=== PATIENT | female | born 1940 | race Caucasian/White ===

== ENCOUNTER 2017-11-19 13:08 | Emergency (ER) | payer MEDICARE, OTHER ==
[2017-09-26 08:24] VITALS: BMI 23.8
[~2017-11-19 13:08] MED LIST: ALBU8.5H IH; ALPR-1 PO; ALPR-445 PO; ALPR-459 PO; ASPI-1441 PO; AUG500 PO; AZIT-1 PO; BLOO-1503 MC; BLOO-1777 MC; CELE-1 PO; CETI-169 PO; CIP500 PO; CITA-139 PO; CITA-155 PO; CLIN300C99 PO; CLOB15CR22 TP; CLOB15OI16 TP; CLOP75TA PO; DIA5 PO; DIAZ-308 PO; DIAZ-311 PO; DIP5L PO; DOCU240C84 PO; DOXY-179 PO; DOXY-228 PO; ENOX100D5 SC; EZET1TAB53 PO; EZET1TAB64 PO; FENO160T PO; FLU45SYR17 IM; FLU45SYR25 IM ONLY; FLUT16SP19 NS; FLUT1DIS27 IH; GABA-547 PO; GLUC500C29 PO; HYDR-318 PO; HYDR-385 PO; HYDR-389 PO; HYDR-4305 PO; HYDR1TAB PO; LEV500 PO; LEVO50TA86 PO; LEVO75TA73 PO; LID5T TP; LOS50 PO; LOSA50TA67 PO; LOSA50TA72 PO; MECL-81 PO; MECL25TA9 PO; METF-408 PO; METO25TA93 PO; MULT-820 PO; MULT1TAB64 PO; NITR-105 PO; OMEP40CA48 PO; OXYC-823 PO; OXYGENHOME INH; PANT40TA65 PO; PER PO; PNEU0.5D3 IM; PRE20 PO; PRED20TA6 PO; QUET25TA30 PO; ROSU20TA23 PO; SAL50R INH; SERT-181 PO; SERT-184 PO; SIMV-49 PO; SIMV10TA98 PO; SITA100T PO; SITA100T9 PO; SITA50TA7 PO; SUCR1TAB51 PO; TRAM-420; WARF-1 PO; WARF1TAB63 PO; [UNRECOGNIZED DRUG - CODE] MC; [UNRECOGNIZED DRUG - CODE] PO
[2017-11-19 14:44] LABS: PLATELET COUNT, AUTOMATED 191 K/uL (150-450)
[2017-11-19] MEDS ORDERED: OLANZapine ZYDIS ODT 5MG TABDP PO ONE ×2 (14:50→15:55)
--- NOTE | 2017-11-19 14:51 | EKG ---
FACILITY: [facility] - [place] PATIENT NAME: THEODORE GARIBAY : [id number] MR: [id number] V: [id number] EXAM DATE: ORDERING PHYSICIAN: MARICEL DOSS TECHNOLOGIST: Test Reason : Blood Pressure : / mmHG Vent. Rate : 074 BPM Atrial Rate : 074 BPM P-R Int : 122 ms QRS Dur : 078 ms QT Int : 314 ms P-R-T Axes : 077 080 083 degrees QTc Int : 348 ms Sinus rhythm Probable left atrial enlargement Artifact in several leads - repeat if needed Abnormal ECG Confirmed by YULISA CANCHOLA ([id number]) on 11/20/2017 6:42:20 AM Referred By: Confirmed By:YULISA CANCHOLA
[2017-11-19 14:59] VITALS: BP 148/73
--- NOTE | 2017-11-19 15:12 | BHS - Psychiatric Evaluation ---
ER - Title 25 MHE Evaluation Title 25 Evaluation Patient Detained By: Physician Referral Source: Dr. Santos Date Patient Detained: Nov 19, 2017 Time Patient Detained: 15:07 Date Shelter Expires: Nov 22, 2017 Time Shelter Expires: 15:07 Legal Status: Police Hold: No Legal Status: Residence: [facility] Resident Assessment Data Provided By: Patient, Other Provider, Family Member(s) HPI/ROS: suicidal threats, homicidal threats Admit due to SI or Attempt: No Suicide Plan: No Plan Alcohol or Drugs Involved: No Is Patient Info Reliable: No Is Collateral Info Reliable: Yes Mental Status Exam General Appearance: Psychomotor Agitation Mood: Dysthmic/Depressed Affect: Anxious, Agitated Thought Process: Loose Associations, Flight of Ideas Thought Content: Suicidal Ideation, Homicidal Ideation, Delusions, Visual Hallucinations Sensorium: Other Cognition: Alert & Oriented-Place Current Risk & History Current Dangerous Risk Assessm: Current Suicide Ideation Past Dangerous Risk Assessm: Homicidal Ideation Previous Suicide Attempt: No Previous Attempt Previous Psychiatric Illness: No Previous Psychiatric Treatment: No Risk Assessment & Disposition Evaluated Risk Assessment: Positive risk for suicide or harm to others Meets Mental Illness Req.: Yes Meets Dangerousness Req.: Yes Emergency Shelter to be: Upheld Date of Decision: Nov 19, 2017 Time of Decision: 15:10 Patient is Medically Stable at: Yes Disposition: LENA GOLDSTEIN MD Nov 19, 2017 15:12
--- NOTE | 2017-11-19 15:14 | ER Report ---
History and Physical Time Seen By MD: 13:15 Hx. of Stated Complaint: Patient reports she is her and "may or may not have" stated she was suicidal. is here and states they are not getting a divorce and she is confused. HPI/ROS CHIEF COMPLAINT: Dementia/delirium/SI/HI HISTORY OF PRESENT ILLNESS: Patient is a 77-year-old female accompanied by her , who presents the ED with a complaint of worsening dementia and delirium and possible suicidal and homicidal ideations. She states that she has had some suicidal ideation the past but is denying this now. She is uncertain who the person with her is today. She said initially that this might be her stepbrother. The person accompanying her is actually her . She appears to think that her son who lives in [place] is her . Her states that he has had a cold police multiple times this week because she has been threatening to kill herself and him. She apparently does not believe that he is her and he states that he she has been calling her multiple different things. He states that this all started when she had back surgery about 6-8 weeks ago and she had a case of extended delirium or dementia sounds. REVIEW OF SYSTEMS: Constitutional: No fever, no chills. Eyes: No discharge. ENT: No sore throat. Cardiovascular: No chest pain, no palpitations. Respiratory: No cough, no shortness of breath. Gastrointestinal: No abdominal pain, no vomiting. Genitourinary: No hematuria. Musculoskeletal: No back pain. Skin: No rashes. Neurological: No headache. Allergies: Coded Allergies: Cephalosporins (Unverified Allergy, Mild, HIVES, 10/28/17) sulfamethoxazole (Verified Allergy, Mild, RASH, 10/28/17) trimethoprim (Verified Allergy, Mild, RASH, 10/28/17) amoxicillin (Verified Allergy, Unknown, GI DISTRESS, 10/28/17) bacitracin (Verified Allergy, Unknown, RASH, 10/28/17) cephalexin (Verified Allergy, Unknown, GI DISTRESS, 10/28/17) clarithromycin (Verified Allergy, Unknown, GI DISTRESS, 10/28/17) levofloxacin (Unverified Allergy, Unknown, HIVES, 10/28/17) Home Meds Active Scripts Quetiapine Fumarate (SEROQUEL) 25 Mg Tablet, 12.5 MG PO QHS for 30 Days, #15 TAB 1/2 tablet at night Prov:ASHLEY DOSS MD 11/18/17 Blood-Glucose Meter (FREESTYLE FREEDOM LITE) 1 Each Kit, 1 EACH MC ONCE, #1 Use to test blood sugars as directed. Prov:GERSON KEN MD 10/02/15 Blood Sugar Diagnostic (FREESTYLE LITE STRIPS) 1 Each Strip, 1 STRIP MC DAILY, # 100 BOTTLE 11 Refills Prov:GERSON KEN MD 09/26/15 Reported Medications Salmeterol Xinafoate (SEREVENT DISKUS) 50 Mcg Inh, 1 PUFF INH BID, INH 10/30/17 Albuterol Sulfate 90 Mcg/Act (PROAIR HFA 90 MCG/ACT) 8.5 Gm Hfa.aer.ad, 2 PUFF IH Q4-6H Y for WHEEZING, INHALER 09/24/17 Sertraline Hcl (SERTRALINE HCL) 100 Mg Tablet, 0.5 TAB PO QDAY, TAB 09/24/17 Oxygen (OXYGEN) Inha, 2 L INH cont 09/08/17 Multivitamin (MULTI VITAMIN DAILY) 1 Each Tablet, 1 TAB PO QDAY 06/22/14 Reviewed Nurses Notes: Yes Old Medical Records Reviewed: Yes Hx Smoking: Yes (SMOKED <1PPD X 40+ YRS. QUIT 2009) Smoking Status: Former Smoker Exposure to Second Hand Smoke?: No Hx Substance Use Disorder: No Hx Alcohol Use: No Constitutional Vital Sign - Last 24 Hours 11/19/17 13:19 Temp 98.7 Pulse 93 Resp 16 B/P (MAP) 158/98 Pulse Ox 91 O2 Delivery Room Air Physical Exam General Appearance: The patient is alert, has no immediate need for airway protection and no signs of toxicity. Eyes: Pupils equal and round no pallor or injection. ENT, Mouth: Mucous membranes are moist. Respiratory: There are no retractions, lungs are clear to auscultation. Cardiovascular: Regular rate and rhythm. Gastrointestinal: Abdomen is soft and non tender, no masses, bowel sounds normal. Skin: Warm and dry, no rashes. Musculoskeletal: Neck is supple non tender. Extremities are nontender, nonswollen and have full range of motion. Medical Decision Making Data Points Result Diagram: 11/19/17 1427 11/19/17 1427 Laboratory Hematology Test 11/19/17 13:43 11/19/17 14:27 Urine Color Yellow Urine Clarity Clear Urine pH 5.0 pH (4.8-9.5) Urine Specific Hooper 1.008 Urine Protein Negative mg/dL (NEGATIVE) Urine Glucose (UA) Negative mg/dL (NEGATIVE) Urine Ketones Negative mg/dL (NEGATIVE) Urine Blood Negative (NEGATIVE) Urine Nitrite Negative (NEGATIVE) Urine Bilirubin Negative (NEGATIVE) Urine Urobilinogen Negative mg/dL (0.2-1.9) Urine Leukocyte Esterase Moderate (NEGATIVE) Urine RBC <1 /HPF (0-2/HPF) Urine WBC 16 /HPF (0-5/HPF) Urine Squamous Epithelial Cells None /LPF (</=FEW) Urine Bacteria Negative /HPF (NONE-FEW) Urine Mucus None /HPF (NONE-FEW) Urine Opiates Screen Negative Urine Barbiturates Screen Negative Ur Tricyclic Antidepressants Screen Negative Urine Phencyclidine Screen Negative Urine Amphetamines Screen Negative Urine Benzodiazepines Screen Positive Urine Cocaine Screen Negative Urine Cannabinoids Screen Negative Red Blood Count 4.44 M/uL (4.17-5.56) Mean Corpuscular Volume 95.0 fL (80.0-96.0) Mean Corpuscular Hemoglobin 31.4 pg (26.0-33.0) Mean Corpuscular Hemoglobin Concent 33.1 g/dL (32.0-36.0) Red Cell Distribution Width 16.9 % (11.5-14.5) Mean Platelet Volume 7.7 fL (7.2-11.1) Neutrophils (%) (Auto) 83.7 % (39.4-72.5) Lymphocytes (%) (Auto) 8.1 % (17.6-49.6) Monocytes (%) (Auto) 7.7 % (4.1-12.4) Eosinophils (%) (Auto) 0.1 % (0.4-6.7) Basophils (%) (Auto) 0.4 % (0.3-1.4) Nucleated RBC Relative Count (auto) 0.0 /100WBC Neutrophils # (Auto) 4.4 K/uL (2.0-7.4) Lymphocytes # (Auto) 0.4 K/uL (1.3-3.6) Monocytes # (Auto) 0.4 K/uL (0.3-1.0) Eosinophils # (Auto) 0.0 K/uL (0.0-0.5) Basophils # (Auto) 0.0 K/uL (0.0-0.1) Nucleated RBC Absolute Count (auto) 0.00 K/uL Sodium Level 138 mmol/L (137-145) Potassium Level 4.2 mmol/L (3.5-5.0) Chloride Level 101 mmol/L (98-107) Carbon Dioxide Level 24 mmol/L (22-31) Blood Urea Nitrogen 24 mg/dl (7-18) Creatinine 1.20 mg/dl (0.52-1.04) Glomerular Filtration Rate Calc 43.7 Random Glucose 95 mg/dl (75-110) Calcium Level 9.4 mg/dl (8.4-10.2) Magnesium Level 1.5 mg/dl (1.7-2.2) Total Bilirubin 0.7 mg/dl (0.2-1.3) Aspartate Amino Transf (AST/SGOT) 30 U/L (0-35) Alanine Aminotransferase (ALT/SGPT) 34 U/L (0-56) Alkaline Phosphatase 57 U/L (0-126) Total Protein 7.3 gm/dl (6.3-8.2) Albumin 4.2 g/dl (3.5-5.0) Salicylates Level < 10 mg/L Salicylate Last Dose Date unknown Acetaminophen Level < 10 ug/ml Serum Alcohol < 10 mg/dl Chemistry Test 11/19/17 13:43 11/19/17 14:27 Urine Color Yellow Urine Clarity Clear Urine pH 5.0 pH (4.8-9.5) Urine Specific Hooper 1.008 Urine Protein Negative mg/dL (NEGATIVE) Urine Glucose (UA) Negative mg/dL (NEGATIVE) Urine Ketones Negative mg/dL (NEGATIVE) Urine Blood Negative (NEGATIVE) Urine Nitrite Negative (NEGATIVE) Urine Bilirubin Negative (NEGATIVE) Urine Urobilinogen Negative mg/dL (0.2-1.9) Urine Leukocyte Esterase Moderate (NEGATIVE) Urine RBC <1 /HPF (0-2/HPF) Urine WBC 16 /HPF (0-5/HPF) Urine Squamous Epithelial Cells None /LPF (</=FEW) Urine Bacteria Negative /HPF (NONE-FEW) Urine Mucus None /HPF (NONE-FEW) Urine Opiates Screen Negative Urine Barbiturates Screen Negative Ur Tricyclic Antidepressants Screen Negative Urine Phencyclidine Screen Negative Urine Amphetamines Screen Negative Urine Benzodiazepines Screen Positive Urine Cocaine Screen Negative Urine Cannabinoids Screen Negative White Blood Count 5.2 k/uL (4.5-11.0) Red Blood Count 4.44 M/uL (4.17-5.56) Hemoglobin 13.9 g/dL (12.0-16.0) Hematocrit 42.2 % (34.0-47.0) Mean Corpuscular Volume 95.0 fL (80.0-96.0) Mean Corpuscular Hemoglobin 31.4 pg (26.0-33.0) Mean Corpuscular Hemoglobin Concent 33.1 g/dL (32.0-36.0) Red Cell Distribution Width 16.9 % (11.5-14.5) Platelet Count 191 K/uL (150-450) Mean Platelet Volume 7.7 fL (7.2-11.1) Neutrophils (%) (Auto) 83.7 % (39.4-72.5) Lymphocytes (%) (Auto) 8.1 % (17.6-49.6) Monocytes (%) (Auto) 7.7 % (4.1-12.4) Eosinophils (%) (Auto) 0.1 % (0.4-6.7) Basophils (%) (Auto) 0.4 % (0.3-1.4) Nucleated RBC Relative Count (auto) 0.0 /100WBC Neutrophils # (Auto) 4.4 K/uL (2.0-7.4) Lymphocytes # (Auto) 0.4 K/uL (1.3-3.6) Monocytes # (Auto) 0.4 K/uL (0.3-1.0) Eosinophils # (Auto) 0.0 K/uL (0.0-0.5) Basophils # (Auto) 0.0 K/uL (0.0-0.1) Nucleated RBC Absolute Count (auto) 0.00 K/uL Glomerular Filtration Rate Calc 43.7 Calcium Level 9.4 mg/dl (8.4-10.2) Magnesium Level 1.5 mg/dl (1.7-2.2) Total Bilirubin 0.7 mg/dl (0.2-1.3) Aspartate Amino Transf (AST/SGOT) 30 U/L (0-35) Alanine Aminotransferase (ALT/SGPT) 34 U/L (0-56) Alkaline Phosphatase 57 U/L (0-126) Total Protein 7.3 gm/dl (6.3-8.2) Albumin 4.2 g/dl (3.5-5.0) Salicylates Level < 10 mg/L Salicylate Last Dose Date unknown Acetaminophen Level < 10 ug/ml Serum Alcohol < 10 mg/dl Toxicology Test 11/19/17 13:43 11/19/17 14:27 Urine Opiates Screen Negative Urine Barbiturates Screen Negative Ur Tricyclic Antidepressants Screen Negative Urine Phencyclidine Screen Negative Urine Amphetamines Screen Negative Urine Benzodiazepines Screen Positive Urine Cocaine Screen Negative Urine Cannabinoids Screen Negative Salicylates Level < 10 mg/L Salicylate Last Dose Date unknown Acetaminophen Level < 10 ug/ml Serum Alcohol < 10 mg/dl Urinalysis Test 11/19/17 13:43 Urine Color Yellow Urine Clarity Clear Urine pH 5.0 pH (4.8-9.5) Urine Specific Hooper 1.008 Urine Protein Negative mg/dL (NEGATIVE) Urine Glucose (UA) Negative mg/dL (NEGATIVE) Urine Ketones Negative mg/dL (NEGATIVE) Urine Blood Negative (NEGATIVE) Urine Nitrite Negative (NEGATIVE) Urine Bilirubin Negative (NEGATIVE) Urine Urobilinogen Negative mg/dL (0.2-1.9) Urine Leukocyte Esterase Moderate (NEGATIVE) Urine RBC <1 /HPF (0-2/HPF) Urine WBC 16 /HPF (0-5/HPF) Urine Squamous Epithelial Cells None /LPF (</=FEW) Urine Bacteria Negative /HPF (NONE-FEW) Urine Mucus None /HPF (NONE-FEW) EKG/Imaging EKG Interpretation 12 lead EKG: Rhythm: Normal sinus rhythm, rate 74 bpm QRS: normal ST segments: Acute ST changes identified. ED Course/Re-evaluation ED Course Discussed patient with Dr. Doss, Production Recovery Operator to get additional information with patient. She states that the patient has been having some auditory hallucinations and delusions and having worsening. 11/19/2017 3:10:56 pm - discussed patient with Dr. Sanabria, psychiatry, who will admit patient under his care. He advised to give patient 5 mg Zyprexa for agitation. Discussed pt with Dr. Arciniega, ED who will complete emergency fdc on pt. Decision to Disposition Date: Nov 19, 2017 Decision to Disposition Time: 15:11 Depart Departure Latest Vital Signs Vital Signs Date Time Temp Pulse Resp B/P (MAP) Pulse Ox O2 Delivery O2 Flow Rate FiO2 11/19/17 13:19 98.7 93 16 158/98 91 Room Air Impression: Primary Impression: Dementia Additional Impression: Psychosis Condition: Improved Disposition: XFER TO [facility] Referrals: GERSON KEN MD (PCP) RN INFORMATICS/PA consult with MD: Verbally MD Consult Note: Dr. Arciniega, ED Dr. Sanabria, Psychiatry Problem Qualifiers Primary Impression: Dementia Dementia type: unspecified type Dementia behavioral disturbance: with behavioral disturbance Qualified Codes: F03.91 - Unspecified dementia with behavioral disturbance Additional Impression: Psychosis Psychosis type: other Qualified Codes: F28 - Other psychotic disorder not due to a substance or known physiological condition MARICEL DOSS PA-C Nov 19, 2017 15:14
[2017-11-19] MEDS ORDERED: LORazepam 1 MG TAB PO ONE (15:55)
[2017-11-20] MEDS ORDERED: CLOP75TA PO (13:28)
== END 2017-11-19 16:01 ==
LOC: ER 13:17
DX: F03.91 Unspecified dementia, unspecified severity, with behavioral disturbance (principal); F28 Other psychotic disorder not due to a substance or known physiological condition
CPT/HCPCS: 36415; 80305; 81001; 83735; 84443; 85025; 93005; 99285; A9270; G0480; 80320; 80329; 82040; 82247; 82310; 82374; 82435; 82565; 82947; 84075; 84132; 84155; 84295; 84450; 84460; 84520

== ENCOUNTER 2017-11-19 15:26 | Inpatient (IN) | payer MEDICARE, OTHER ==
[2017-09-26 08:24] VITALS: Ht 170.2 cm; Wt 62.9 kg
[~2017-11-19] VITALS: Ht 170.2 cm; Wt 62.9 kg
[2017-11-19] MEDS ORDERED: MAG HYD/AL HYD/SIMETH 30ML UDC PO PRN (16:50)
[2017-11-19] MEDS ORDERED: DIAZEPAM 5 MG TAB PO ONE (17:50)
--- NOTE | 2017-11-19 19:44 | BHS - Psychiatric Evaluation ---
ER - Title 25 MHE Evaluation Title 25 Evaluation Patient Detained By: Physician (Dr Valerie Arciniega) Referral Source: Referral: Dr. Arciniega Date Patient Detained: Nov 19, 2017 Time Patient Detained: 15: Date Correction Expires: Nov 24, 2017 Time Correction Expires: 15: Legal Status: Police Hold: No Legal Status: Residence: [facility] Resident, State Resident Assessment Data Provided By: Patient, Other Source HPI/ROS: Patient is unable to recognize her family members, and is psychotic. belives her son is her of 53 years. Unable to care for herself given mental confusion and lack of orientation. Says she does not have a home and does not want to eat. Admit due to SI or Attempt: No Suicide Plan: No Plan (Denies) Alcohol or Drugs Involved: No Is Patient Info Reliable: No (Patient is psychotic) Is Collateral Info Reliable: No Mental Status Exam General Appearance: Casual, Well Groomed, Good Eye Contact, Cooperative, Tearful Speech: Clear, Normal Rate, Normal Rhythm, Normal Volume, Normal Tone Mood: Dysthmic/Depressed Affect: Sad, Tearful Thought Process: Other (Confused and frustrated) Thought Content: Suicidal Ideation (Denies) Cognition: No Alert & Oriented-Person, No Alert & Oriented-Place, No Alert & Oriented-Time, No [id number] Memory: No Immediate, No Recent, No Remote Insight Judgment: Poor Hallucinations: Denies Delusions: Persecutory (Believes family members are lying to her about who they are, and who she is.) Current Risk & History Current Dangerous Risk Assessm: Self-Injurious Behaviors (Unable to care for herself, including not eating. planned to leave ER without transporation or group home.) Past Dangerous Risk Assessm: Other (Unknown) Previous Suicide Attempt: No Previous Attempt (Unknown to this interviewer) Previous Psychiatric Illness: Yes (Unknown) Previous Psychiatric Treatment: Yes (Past prolonged delerium) Previous Treatment Description Patient has been treated for delirium that occurred not long after a back surgery. Risk Assessment & Disposition Evaluated Risk Assessment: Risk is rated as high. Patient's mental confusion renders her unable to affiliate with care givers and seek and fulfill basic needs for food, safety, and group home. Impression: Primary Impression: Generalized anxiety disorder Additional Impression: Depression Meets Mental Illness Req.: Yes Meets Dangerousness Req.: Yes Emergency Correction to be: Upheld Decision Comment: Risk is rated as high. Patient's mental confusion renders her unable to affiliate with care givers and seek and fulfill basic needs for food, safety, and group home. Date of Decision: Nov 19, 2017 Time of Decision: 19:41 Patient is Medically Stable at: Yes Disposition: [facility] Problem Qualifiers SHARDA MIRZA LPC Nov 19, 2017 19:44
[2017-11-19 21:55] VITALS: BP 125/66
[2017-11-20 03:19] VITALS: BP 137/72
[2017-11-20] MEDS: FOLIC ACID 1 MG TAB PO SCH (09:00)
[2017-11-20] MEDS: THIAMINE HCL 100 MG TAB PO SCH (09:00)
[2017-11-20] MEDS: MULTIVITAMINS PO SCH (09:00)
[2017-11-20] MEDS: CLOPIDOGREL BISULFATE 75MG TAB PO SCH (12:28)
[2017-11-20] MEDS ORDERED: CLOP75TA PO (13:28)
[2017-11-20 13:59] VITALS: BP 111/61
[2017-11-20] MEDS: ACETAMINOPHEN 500 MG TAB PO PRN (16:22)
--- NOTE | 2017-11-20 17:01 | HISTORY AND PHYSICAL ---
DATE OF ADMISSION: November 19, 2017 PRESENTING PROBLEM/CHIEF COMPLAINT Ongoing behavioral disturbance associated with probable dementia. HISTORY OF PRESENT ILLNESS This is a pleasant 77-year-old female, first interviewed on the morning of November 20, 2017 at approximately 0900 hours. Patient again is a 77-year -old female. Patient continues to reside at home with her of some 50 years. Patient's reports that she has been acting strangely ever since having surgery for laminectomy in August of 2017. When asked if the patient was exhibiting any signs of slight or mild forgetfulness, or any other signs of dementia prior to surgery, patient's reports no. Patient reports that after surgery she had changed completely. She had remained delusional after surgery, thinking that her was somebody else and being possibly her goreaf-hx-stk or brother. Patient is also convinced that her oldest son who lives in [place] is actually her ex-. Patient appears anxious at home and has had disturbed sleep with a weight loss of approximately 30 pounds since the surgery, believed to have been in late August or early September of 2017. Please see electronic record. Patient's outpatient electronic technician contacted this provider to request potential evaluation on the Behavioral Health Unit for dementia and potentially for placement in custodial if symptoms could not improve. Patient does have a history of behavioral disturbance that is possibly complicated by reactions to opiates or benzodiazepines prescribed following the surgery. Patient has a history of a UTI in the past as well and has multiple allergies to multiple antibiotics. Macrobid is believed to have been the last antibiotic prescribed, which could carry a potential for psychosis as well. Patient was cooperative and pleasant during interview, tearful at times, was stating to this provider that her has gone off with someone else and has remarried. When asked what the year was, patient reported it was 1990. Later upon return to meet with the patient, patient did remember this provider's name, and again after a return visit with this patient within a span of a few hours, when asked what the year was, patient reported, " I told you earlier it was 1990, but it is actually 1991." Interestingly, when came to visit patient this morning she quickly recognized him as her to the point the did not understand this, reporting to this provider and questioning, "Is she pulling my leg?" It is notable that the patient did have 5 mg of Zyprexa the evening before and did obtain some restorative sleep. Patient was noted not to eat breakfast, although her said this is not uncommon, but she did consume most if not all of the lunch that patient ordered. Further evaluation will be required for any further symptoms of psychiatric concern. MENTAL HEALTH HISTORY Patient has never been an inpatient on a psychiatric fraire before. She has no outpatient psychiatric contact, although has been prescribed benzodiazepines, apparently mostly in relation to back pain and for muscle relaxing effects. Patient has been prescribed opiates as well. Although does report that patient has suffered from anxiety for the last one to two years, although does not relate this to any kind of dementia concerns at the time. Patient has no history of suicide attempt. FAMILY PSYCHIATRIC HISTORY Per , patient's mother of cancer, and there is no other significant illness in the family. Patient has an older sister who has also secondary to cancer of some type. No alcohol or drug abuse in the family, and no suicides in the family. PAST MEDICAL HISTORY Significant for recent laminectomy believed to be in late August or early September of 2017. Patient has been treated for hypertension in the past, dyslipidemia, pulmonary embolism and perforated ulcer, and non-ST elevated myocardial infarction in the past. Patient is allergic to MULTIPLE ANTIBIOTICS , including CEPHALOSPORINS, AMOXICILLIN, BACITRACIN, CEPHALEXIN, CLARITHROMYCIN , LEVOFLOXACIN, SULFAS, SULFAMETHOXAZOLE and TRIMETHOPRIM. SOCIAL HISTORY Patient was born in [place], raised in [place] until a young adult. Patient met her who was stationed in the [employer] in [place] in 1961. They left [place] in approximately 1965. She has remained in [place] ever since. Patient's reports they have been for 50-some years. Her father was killed when she was very young toward the end of World War II. She had one older sister who from cancer. She is a high school graduate. 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 She has two grown sons who are doing well. Patient's does not think she suffered any abuse growing up. LEGAL HISTORY No legal history. SUBSTANCE ABUSE HISTORY Significant for relatively heavy smoking for a number of years in the past. Patient quit within the last decade. Patient has used minimal alcohol, is not believed to have ever abused any other substance. PHYSICAL EXAMINATION GENERAL: Please see emergency room note. Notable for thin 77-year-old female exhibiting behaviors consistent with dementia in the emergency room. Patient eventually emergency detained secondary to illogical thought processes. VITAL SIGNS: At the time of admission temperature 98.7, pulse 93, respiratory rate 16, blood pressure 158/98, pulse oximetry 91 on room air. Patient in no acute medical distress. LABORATORY DATA CBC notable for neutrophils 83.7, otherwise overall unremarkable. Chemistry panel notable for BUN slightly elevated at 24 with creatinine slightly elevated at 1.20. Magnesium slightly low at 1.5 and TSH notably elevated at 14.0. Moderate leukocyte esterase was positive in urine sample with 16 white blood cells, however, preliminary microbiology reports indicate contaminated specimen. Toxicology screen once again positive for benzodiazepines which are likely not helping the patient's cognition. Negative for other substances of abuse, and nondetectable serum alcohol level. MENTAL STATUS EXAMINATION GENERAL APPEARANCE, BEHAVIOR AND ATTITUDE: This is a well-groomed 77-year-old female, thin body habitus, making dqza-dj-iivo eye contact. Fearful at times when discussing what appears to be delusional thoughts concerning her . The patient cooperative overall. Minimal psychomotor agitation noted. SPEECH: Soft at times with ongoing accent from [place] childhood. MOOD: Unable to fully describe. AFFECT: Constricted, anxious appearing. THOUGHT PROCESSES: Appear goal directed to some degree. Patient asking when she can leave. No obvious loose associations or flight of ideas were detected. THOUGHT CONTENT: Free of any obvious auditory or visual hallucinations at the time of initial interview. Delusional content concerning her and oldest son ongoing. No evidence of suicidal or homicidal ideation. SENSORIUM: Clear. COGNITION: Alert and oriented to person only, partially to place. Patient not oriented to time or situation. MEMORY: Immediate, recent and remote need further assessment. INTELLIGENCE: Historically average based on historical data from . INSIGHT AND JUDGMENT: Currently considered grossly limited due to neurocognitive disorder. ASSESSMENT This is a 77-year-old female who, according to her of 50-some years, gives no evidence of any type of dementia or memory decline prior to surgery in late August or early September for a laminectomy. Since that time patient was prescribed medications which could have continued to impair her cognition. Patient also on CT scan does show generalized atrophy and microvascular change. We will continue to evaluate. We will remove all offending medications and will try to restore effective sleep cycle. 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 Rule out any additional cognitive impairment secondary to substance use, prescribed benzodiazepines or opiates. Rule out sleep disorder. Patient noted to have supportive . PLAN 1. Admit to the unit. 2. Necessary precautions to be implemented. 3. Patient will participate in individual and group therapy. 4. Medications to be administered, titrated accordingly. We will use Seroquel in low dose to restore sleep. 5. Collateral information to be obtained. 6. Further lab work to be obtained as well. We will follow troponins closely. 7. Estimated length of stay potentially three to five days. We will look into patient improvement and return to home versus assistant terminal manager care MTDD
[2017-11-20] MEDS ORDERED: QUEtiapine FUM 25 MG TAB PO ONE (17:50)
[2017-11-20] MEDS ORDERED: QUEtiapine FUM 25 MG TAB PO PRN (17:55)
[2017-11-20] MEDS: QUEtiapine FUM 25 MG TAB PO SCH (21:00)
[2017-11-20] MEDS ORDERED: QUEtiapine FUM 25 MG TAB PO SCH (21:00)
[2017-11-20 21:45] VITALS: BP 121/69
[2017-11-21 06:39] VITALS: BP 124/68
[2017-11-21] MEDS: CLOPIDOGREL BISULFATE 75MG TAB PO SCH (08:07)
[2017-11-21] MEDS: THIAMINE HCL 100 MG TAB PO SCH (08:08)
[2017-11-21] MEDS: MULTIVITAMINS PO SCH (08:08)
[2017-11-21] MEDS: FOLIC ACID 1 MG TAB PO SCH (08:08)
[2017-11-21] MEDS: NITROFURANTOIN MONO 100 MG PO SCH ×2 (10:44→21:46)
[2017-11-21 12:35] VITALS: BP 108/58
--- NOTE | 2017-11-21 15:21 | BHS Progress Note ---
[facility] - Subjective Progress Notes Subjective Pt seen in treatment team meeting with her present, later seen in her room individually. Pt and both feel she is "doing much better, but not all the way back yet." Pt is mildly confused this am, she couldn't say the year , but then looked around the room and found it written on the board. She denies AH. Does not seem guarded or paranoid. Urine culture is growing gram negative rods, sensitivity not back yet but will treat with nitrofurantoin. This may in part be etiology of likely multifactorial delerium (including post- op laminectomy as well). Pt reports "good mood", eating well, is steady on her feet, slept well last night, tolerated seroquel 25 mg without side effects, not oversedated today. Continue seroquel. Suicidal Ideation: None Homicidal Ideation: None [facility] - Objective Physical Exam Vital Signs Vital Signs 11/21/17 12:35 Temp 98.0 Pulse 81 Resp 16 B/P (MAP) 108/58 (75) Pulse Ox 91 O2 Delivery Room Air Muscle Strength and Tone: WNL Gait and Station: Steady [facility] Medications Reviewed: Side Effects, Benefits of Medication, Risks Allergies Reviewed: Yes Mental Status Exam General Appearance: Casual, Well Groomed, Good Eye Contact, Cooperative, Polite , Good Interaction Speech: Clear, Normal Rate, Normal Rhythm, Normal Volume, Normal Tone Mood: Dysthmic/Depressed Affect: Calm, Sad Thought Process: Other (still some confusion, less than yesterday, less frustration.) Thought Content: No Suicidal Ideation, No Homicidal Ideation, No Delusions, No Auditory Halllucinations, No Visual Hallucinations, No Thought Broadcasting, No Ideas of Reference, No Obsessions, No Compulsions, No Other Sensorium: Clear Cognition: Alert & Oriented-Person, Alert & Oriented-Place ("hospital"), Alert- Oriented-Situation Memory: No Immediate, No Recent, No Remote, Other (better memory today than yesterday, improving but not at usual previous sharp baseline.) Intelligence: Average Insight Judgment: Poor Lab Hematology Test 11/20/17 00:00 11/20/17 11:46 11/21/17 11:40 Urine Color Yellow Urine Clarity Clear Urine pH 6.0 pH (4.8-9.5) Urine Specific [place] 1.009 Urine Protein Negative mg/dL (NEGATIVE) Urine Glucose (UA) Negative mg/dL (NEGATIVE) Urine Ketones Negative mg/dL (NEGATIVE) Urine Blood Negative (NEGATIVE) Urine Nitrite Negative (NEGATIVE) Urine Bilirubin Negative (NEGATIVE) Urine Urobilinogen Negative mg/dL (0.2-1.9) Urine Leukocyte Esterase Moderate (NEGATIVE) Urine RBC None /HPF (0-2/HPF) Urine WBC 23 /HPF (0-5/HPF) Urine Squamous Epithelial Cells None /LPF (</=FEW) Urine Bacteria Few /HPF (NONE-FEW) Urine Mucus None /HPF (NONE-FEW) Stool Occult Blood (IFOB) Negative (NEGATIVE) Hemoglobin A1c 5.4 % (4.6-6.0) Vitamin D 25-Hydroxy 47 ng/ml (30-100) Free Thyroxine 0.84 ng/dl (0.78-2.19) Troponin I 0.018 ng/ml Chemistry Test 11/20/17 00:00 11/20/17 11:46 11/21/17 11:40 Urine Color Yellow Urine Clarity Clear Urine pH 6.0 pH (4.8-9.5) Urine Specific [place] 1.009 Urine Protein Negative mg/dL (NEGATIVE) Urine Glucose (UA) Negative mg/dL (NEGATIVE) Urine Ketones Negative mg/dL (NEGATIVE) Urine Blood Negative (NEGATIVE) Urine Nitrite Negative (NEGATIVE) Urine Bilirubin Negative (NEGATIVE) Urine Urobilinogen Negative mg/dL (0.2-1.9) Urine Leukocyte Esterase Moderate (NEGATIVE) Urine RBC None /HPF (0-2/HPF) Urine WBC 23 /HPF (0-5/HPF) Urine Squamous Epithelial Cells None /LPF (</=FEW) Urine Bacteria Few /HPF (NONE-FEW) Urine Mucus None /HPF (NONE-FEW) Stool Occult Blood (IFOB) Negative (NEGATIVE) Hemoglobin A1c 5.4 % (4.6-6.0) Vitamin D 25-Hydroxy 47 ng/ml (30-100) Free Thyroxine 0.84 ng/dl (0.78-2.19) Troponin I 0.018 ng/ml Urinalysis Test 11/20/17 00:00 Urine Color Yellow Urine Clarity Clear Urine pH 6.0 pH (4.8-9.5) Urine Specific [place] 1.009 Urine Protein Negative mg/dL (NEGATIVE) Urine Glucose (UA) Negative mg/dL (NEGATIVE) Urine Ketones Negative mg/dL (NEGATIVE) Urine Blood Negative (NEGATIVE) Urine Nitrite Negative (NEGATIVE) Urine Bilirubin Negative (NEGATIVE) Urine Urobilinogen Negative mg/dL (0.2-1.9) Urine Leukocyte Esterase Moderate (NEGATIVE) Urine RBC None /HPF (0-2/HPF) Urine WBC 23 /HPF (0-5/HPF) Urine Squamous Epithelial Cells None /LPF (</=FEW) Urine Bacteria Few /HPF (NONE-FEW) Urine Mucus None /HPF (NONE-FEW) Microbiology Microbiology 11/20/17 Urine Culture - Preliminary, Resulted Gram Negative John Gram Negative John#2 [facility] Assessment and Plan [id number] Encounter Date: Nov 21, 2017 [id number] Encounter Time: 09:00 [facility] Plan: Admit to Unit, Necessary Precautions, Individual/Group Therapy, Admin /Titrate Meds, Educate Patient Tobacco Medications: Not Appropriate Condition Problems: (1) Delirium due to general medical condition Assessment & Plan: With psychosis, likely secondary to post-operative state as well as UTI. REGGIE TOMLINSON MD Nov 21, 2017 15:21
[2017-11-21] MEDS: ACETAMINOPHEN 500 MG TAB PO PRN (16:47)
[2017-11-21] MEDS ORDERED: LIDOCAINE 5% PATCH TP SCH ×2 (18:00)
[2017-11-21] MEDS: QUEtiapine FUM 25 MG TAB PO SCH (21:46)
[2017-11-22] MEDS ORDERED: PATCH REMOVAL 1 EA TP SCH (06:00)
[2017-11-22] MEDS: NITROFURANTOIN MONO 100 MG PO SCH ×2 (08:02→20:49)
[2017-11-22] MEDS: CLOPIDOGREL BISULFATE 75MG TAB PO SCH (08:02)
[2017-11-22] MEDS: MULTIVITAMINS PO SCH (08:02)
[2017-11-22] MEDS: THIAMINE HCL 100 MG TAB PO SCH (08:02)
[2017-11-22] MEDS: FOLIC ACID 1 MG TAB PO SCH (08:02)
--- NOTE | 2017-11-22 08:53 | BHS Progress Note ---
[facility] - Subjective Progress Notes Subjective "I'm good." "I heard a loud voice last night and I'm pretty sure it wasn't a dream." Denies SI. Denies hearing voices today. Reports the year as "1927" Suicidal Ideation: None Homicidal Ideation: None S - Objective Physical Exam Vital Signs Vital Signs 11/21/17 12:35 Temp 98.0 Pulse 81 Resp 16 B/P (MAP) 108/58 (75) Pulse Ox 91 O2 Delivery Room Air Muscle Strength and Tone: WNL Gait and Station: Steady [facility] Medications Reviewed: Side Effects, Benefits of Medication, Risks Allergies Reviewed: Yes Mental Status Exam General Appearance: Casual, Well Groomed, Good Eye Contact, Cooperative, Polite , Good Interaction Speech: Clear, Normal Rate, Normal Rhythm, Normal Volume, Normal Tone Mood: Dysthmic/Depressed Affect: Calm, Sad Thought Process: Other (still some confusion, less than yesterday, less frustration.) Thought Content: No Suicidal Ideation, No Homicidal Ideation, No Delusions, No Auditory Halllucinations, No Visual Hallucinations, No Thought Broadcasting, No Ideas of Reference, No Obsessions, No Compulsions, No Other Sensorium: Clear Cognition: Alert & Oriented-Person, Alert & Oriented-Place ("hospital"), Alert- Oriented-Situation Memory: No Immediate, No Recent, No Remote, Other (better memory today than yesterday, improving but not at usual previous sharp baseline.) Intelligence: Average Insight Judgment: Poor [facility] Assessment and Plan Hefi-nc-[id number] Encounter Date: Nov 22, 2017 [id number] Encounter Time: 08:00 [facility] Plan: Admit to Unit, Necessary Precautions, Individual/Group Therapy, Admin /Titrate Meds, Educate Patient Tobacco Medications: Not Appropriate Condition Problems: BOUBACAR GONZALEZ NP Nov 22, 2017 08:53
[2017-11-22 13:00] VITALS: BP 123/100
[2017-11-22] MEDS ORDERED: LIDOCAINE 5% PATCH TP SCH (18:00)
[2017-11-22 19:36] VITALS: BP 138/70
[2017-11-22] MEDS: QUEtiapine FUM 25 MG TAB PO SCH (20:49)
[2017-11-23 03:15] VITALS: BP 112/60
[2017-11-23] MEDS: FOLIC ACID 1 MG TAB PO SCH (08:39)
[2017-11-23] MEDS: ACETAMINOPHEN 500 MG TAB PO PRN ×3 (08:39→21:43)
[2017-11-23] MEDS: MULTIVITAMINS PO SCH (08:39)
[2017-11-23] MEDS: THIAMINE HCL 100 MG TAB PO SCH (08:40)
[2017-11-23] MEDS: NITROFURANTOIN MONO 100 MG PO SCH ×2 (08:40→21:37)
[2017-11-23] MEDS: PATCH REMOVAL 1 EA TP SCH (08:45)
[2017-11-23 12:05] VITALS: BP 132/74
[2017-11-23 17:59] VITALS: BP 125/66
[2017-11-23] MEDS ORDERED: LIDOCAINE 5% PATCH TP SCH (20:00)
[2017-11-23] MEDS: QUEtiapine FUM 25 MG TAB PO SCH (21:37)
[2017-11-24 05:07] VITALS: BP 132/77
[2017-11-24] MEDS: FOLIC ACID 1 MG TAB PO SCH (08:08)
[2017-11-24] MEDS: MULTIVITAMINS PO SCH (08:08)
[2017-11-24] MEDS: THIAMINE HCL 100 MG TAB PO SCH (08:08)
[2017-11-24] MEDS: NITROFURANTOIN MONO 100 MG PO SCH (08:08)
[2017-11-24] MEDS: PATCH REMOVAL 1 EA TP SCH (08:40)
[2017-11-24] MEDS ORDERED: LIDO15CR8 (09:50)
[2017-11-24] MEDS ORDERED: LIDO700A19 TOP (09:53)
[2017-11-24] MEDS ORDERED: NITR-105 PO (09:55)
[2017-11-24] MEDS ORDERED: QUET25TA30 PO (10:01)
[2017-11-24] MEDS ORDERED: CYAN50TA3 PO (10:13)
[2017-11-24] MEDS ORDERED: NITROFURANTOIN MONO 100 MG PO SCH (21:00)
--- NOTE | 2017-11-25 20:12 | DISCHARGE SUMMARY ---
DATE OF ADMISSION: November 19, 2017 DATE OF DISCHARGE: November 24, 2017 FINAL DIAGNOSES PER DSM-V Mild cognitive impairment secondary to multiple etiologies. Potential Alzheimer and vascular dementia. Cognitive impairment secondary to substance use, benzodiazepine and possibly related to general medical condition urinary tract infection, both considered resolved. Patient noted to be in a very supportive relationship with her . REASON FOR ADMISSION This patient was seen for this discharge dictation on November 24, 2017 at approximately 0900 hours. Please see H and P for full details on this 77-year-old female who [place] [facility] in a state of psychosis. Patient experiencing delusions concerning family members. Patient has been experiencing significant decline in cognitive capacity since having surgery in what appears to be September 2017. Patient's states that patient was functioning fine prior to surgery. Patient experiencing significant neurocognitive decline after surgery. Patient was noted to continue to use benzodiazepines and opiates. This largely contributed to this state as well. Imaging of the brain would be consistent with neurocognitive disorder as well, including some atrophy as well as microvascular change. Patient was admitted to the unit. All offending medications were removed. Patient's sleep was restored using low dose antipsychotics including Zyprexa initially, then switched to Seroquel. Patient's cognition quickly improved. Patient's delusional type thinking resolved. Patient still having some mild memory concerns at the time of discharge, but patient's stating she had returned largely to baseline and was ready to take her home. PHYSICAL EXAMINATION GENERAL: Please see emergency room note. This is notable for a thin 77-year- old female in no acute medical distress. VITAL SIGNS: At the time of admission, temperature 98.7, pulse 93, respiratory rate 16, blood pressure 158/98 and pulse oximetry 91 on room air. At the time of discharge from the Behavioral Health Unit vital signs showed a temperature of 97.7, pulse 85, respiratory rate 16, blood pressure 132/77, pulse oximetry 93 on room air. LABORATORY DATA UA on November 20, 2017 showed moderate leukocyte esterase, 23 white blood cells present, some urine bacteria. Culture of this urine yielded Pseudomonas aeruginosa and Citrobacter freundii. Patient was placed on nitrofurantoin with good results. Chemistry panel showed free T4 low normal range 0.84, free T3 low normal range 2.6. Folate 20.1, vitamin D 25-hydroxy 47, vitamin B12 265. Troponins on November 20, 2017 did remain detectable at 0.017, and repeat on November 21, 2017 noted 0.018. Hemoglobin A1c was 5.4, and stool occult blood was negative. Upon arrival in the emergency room CBC overall unremarkable. Chemistry panel notable for creatinine slightly elevated at 1.20 with a BUN of 24. TSH notably elevated at 14.0. Toxicology screen at arrival to the emergency room was positive for benzodiazepines, negative for other substances of abuse including opiates, and negative for serum alcohol. MENTAL STATUS EXAMINATION AT THE TIME OF DISCHARGE GENERAL APPEARANCE, BEHAVIOR AND ATTITUDE: This is a cooperative, pleasant 77- year-old female continuing to have some mild memory deficits, but interacting well, smiling at this provider, and patient able to remember previous contact with this provider. Patient nontearful, interacting well with her . No bizarre mannerisms or tics. SPEECH: Largely within normal limits, regular rate, rhythm volume and tone. Patient having accent from developmental years in [place]. MOOD: Described as good. AFFECT: Full and bright. THOUGHT PROCESSES: Logical, goal directed. No loose associations or flight of ideas. THOUGHT CONTENT: Free of auditory or visual hallucinations, ideas of reference , thought broadcastings, delusions, obsessions, compulsions. Negative for any suicidal or homicidal ideation. SENSORIUM: Clear. COGNITION: Alert and oriented to person, place, time and situation. MEMORY: Immediate, recent and remote estimated intact. INTELLIGENCE: Average based on interview and historical data. INSIGHT AND JUDGMENT: Considered grossly intact and appropriate for outpatient treatment, to be managed and monitored by her . RESULTS OF TESTING IMAGING: Please see electronic record. LABORATORY DATA: See above. CONSULTATIONS: None. TREATMENT Patient received medications, participated in individual and group therapy. HOSPITAL COURSE This pleasant 77-year-old female was admitted in an initial state of delusions with some paranoid type thinking. This seemed to respond quickly to low dose antipsychotics in the absence of benzodiazepine. Also patient was simultaneously treated for what appeared to be a urinary tract infection. Patient continued to quickly improve and patient taking an active role in her treatment. Patient interacting well with her toward the later stages of her treatment. CONDITION OF PATIENT ON DISCHARGE Stable. Considered a minimal risk to herself or others and appropriate for ongoing outpatient management. DISPOSITION Patient discharged to home in the care of her . She would follow up with outpatient medication management and see medicare biller. Patient would continue lidocaine 5% patch to lower back, Macrobid 100 mg twice daily for the next two days, Seroquel 25 mg at bedtime, multivitamin with minerals daily. Patient was to stop Plavix until seen by outpatient provider. Patient would stop all benzodiazepine, stop opiates. Patient would continue on home oxygen at night at 2L, and would stop sertraline as well. Patient was to have a TSH redrawn in about two weeks to recheck, and given the crisis line should symptoms return. Risks, benefits and alternatives of above discharge plan were discussed. Informed consent was given to proceed with above discharge plan by this competent patient and patient's present at the time of discharge. CONCHITA
--- NOTE | 2017-11-30 18:22 | BHS Progress Note ---
[facility] - Subjective Progress Notes Subjective This note is entered for patient visit which occurred on 11/23/17. "I feel wonderful. " Client is alert. She denies hallucination and is pleasant and cooperative. Suicidal Ideation: None Homicidal Ideation: None S - Objective Physical Exam Muscle Strength and Tone: WNL Gait and Station: Steady [facility] Medications Reviewed: Side Effects, Benefits of Medication, Risks Allergies Reviewed: Yes Mental Status Exam General Appearance: Casual, Well Groomed, Good Eye Contact, Cooperative, Polite , Good Interaction Speech: Clear, Normal Rate, Normal Rhythm, Normal Volume, Normal Tone Mood: Dysthmic/Depressed Affect: Calm, Sad Thought Process: Other (still some confusion, less than yesterday, less frustration.) Thought Content: No Suicidal Ideation, No Homicidal Ideation, No Delusions, No Auditory Halllucinations, No Visual Hallucinations, No Thought Broadcasting, No Ideas of Reference, No Obsessions, No Compulsions, No Other Sensorium: Clear Cognition: Alert & Oriented-Person, Alert & Oriented-Place ("hospital"), Alert- Oriented-Situation Memory: No Immediate, No Recent, No Remote, Other (better memory today than yesterday, improving but not at usual previous sharp baseline.) Intelligence: Average Insight Judgment: Poor [facility] Assessment and Plan [id number] Encounter Date: Nov 23, 2017 [id number] Encounter Time: 08:45 [facility] Plan: Admit to Unit, Necessary Precautions, Individual/Group Therapy, Admin /Titrate Meds, Educate Patient Tobacco Medications: Not Appropriate Condition Problems: BOUBACAR GONZALEZ NP Nov 30, 2017 18:21
== END 2017-11-24 10:20 | disposition home or self-care (01) | DRG 57 ==
LOC: BHS 15:26
PROVIDERS: ADMIT Psychiatry & Neurology Psychiatry; ATTEND Psychiatry & Neurology Psychiatry
DX: G30.9 Alzheimer's disease, unspecified (principal); F02.81 Dementia in other diseases classified elsewhere, unspecified severity, with behavioral disturbance; F01.51 Vascular dementia, unspecified severity, with behavioral disturbance; N39.0 Urinary tract infection, site not specified; F05 Delirium due to known physiological condition; E78.5 Hyperlipidemia, unspecified; B96.5 Pseudomonas (aeruginosa) (mallei) (pseudomallei) as the cause of diseases classified elsewhere; F41.1 Generalized anxiety disorder; F32.9 Major depressive disorder, single episode, unspecified; I10 Essential (primary) hypertension; I25.2 Old myocardial infarction; R82.90 Unspecified abnormal findings in urine; R63.4 Abnormal weight loss; T42.4X5A Adverse effect of benzodiazepines, initial encounter; T40.605A Adverse effect of unspecified narcotics, initial encounter; Z98.890 Other specified postprocedural states; Z99.81 Dependence on supplemental oxygen; Z88.1 Allergy status to other antibiotic agents; Z88.2 Allergy status to sulfonamides; Z86.711 Personal history of pulmonary embolism; Z87.11 Personal history of peptic ulcer disease; Z87.891 Personal history of nicotine dependence
CPT/HCPCS: 36415; 80305; 80320; 80329; 81001; 82040; 82247; 82274; 82306; 82310; 82374; 82435; 82565; 82607; 82746; 82947; 83036; 83735; 84075; 84132; 84155; 84295; 84439; 84443; 84450; 84460; 84481; 84484; 84520; 85025; 87077; 87088; 87186; 93005; 99285

== ENCOUNTER → 2017-12-01 | Outpatient (CLI) | payer MEDICARE, OTHER ==
[2017-09-26 08:24] VITALS: BMI 23.8
[~2017-12-01] MED LIST changes: +CYAN50TA3 PO; +LIDO15CR8; +LIDO700A19 TOP
== END ==
LOC: LAB 10:43
PROVIDERS: ATTEND Psychiatry & Neurology Psychiatry
DX: R41.82 Altered mental status, unspecified (principal); F05 Delirium due to known physiological condition
CPT/HCPCS: 36415; 84443

== ENCOUNTER → 2018-01-06 | Outpatient (CLI) | payer MEDICARE, OTHER ==
[2017-09-26 08:24] VITALS: BMI 23.8
[~2018-01-06] MED LIST changes: +ACET500T68 PO; +ASPI81TA94 PO; +DULO20CA3 PO; +DULO40CA2 PO; +WARF1TAB15 PO; -WARF1TAB63 PO
== END ==
LOC: LAB 11:33
PROVIDERS: ATTEND Internal Medicine
DX: E03.9 Hypothyroidism, unspecified (principal)
CPT/HCPCS: 36415; 84443

== ENCOUNTER 2018-01-12 00:42 | Day surgery (SDC) | payer MEDICARE, OTHER ==
[2017-09-26 08:24] VITALS: Ht 170.2 cm; Wt 59.0 kg
[~2018-01-12] VITALS: Ht 170.2 cm; Wt 59.0 kg
[2018-01-12 08:05] VITALS: BP 156/77
[2018-01-12] MEDS ORDERED: LIDOCAINE 4% SOLN 50 ML BTL TP ONE (08:14)
[2018-01-12] MEDS ORDERED: COCAINE HCL SOLN 4% 4 ML BTL TP ONE (08:16)
[2018-01-12] MEDS ORDERED: LIDOCAINE/SOD BICARB 8.4% SYR ID ONE (08:35)
[2018-01-12] MEDS ORDERED: FAMOTIDINE 20 MG TAB PO ONE (08:35)
[2018-01-12] MEDS ORDERED: NORMOSOL R SOLN(*) 1000 ML BAG 1,000 ML IV PRN (08:35)
[2018-01-12] MEDS ORDERED: CLINDAMYCIN(*) 600 MG/NS 50 ML 50 ML IVPB ONE (08:35)
[2018-01-12] MEDS ORDERED: BACITRACIN OINT 15 GM TUBE TP ONE (08:57)
[2018-01-12] MEDS ORDERED: MUPIROCIN 2% OINT 22 GM TUBE TP ONE (08:58)
[2018-01-12] MEDS ORDERED: LIDO/EPI 1% MDV 1:100,000 20ML INFIL ONE (08:58)
[2018-01-12 09:40] VITALS: BP 160/85
[2018-01-12] MEDS ORDERED: DOXY-179 PO (09:48)
[2018-01-12 09:55] VITALS: BP 124/85
[2018-01-12 09:57] VITALS: BP 94/57
--- NOTE | 2018-01-12 14:58 | OPERATIVE REPORT 1 ---
EVENT DATE: January 12, 2018 SURGEON: Jericho Marie MD ANESTHESIA: Local. PROCEDURE Right sphenoid balloon sinuplasty. PREOPERATIVE DIAGNOSIS Chronic right sphenoid sinusitis. POSTOPERATIVE DIAGNOSIS Chronic right sphenoid sinusitis. INDICATIONS Please refer to the preoperative note. DESCRIPTION OF PROCEDURE The patient was positively identified in the preoperative area. She was accompanied there by her . Risks were again explained, including but not limited to bleeding and infection. The acknowledged understanding of these risks. The patient's preoperative CT scan was again reviewed. This was notable for isolated opacification of the right sphenoid sinus. She was then brought back to the operative suite, laid supine on the operative table. Topical anesthetic was applied with cottonoids containing 4% cocaine solution. These were subsequently removed, and then the scope was introduced. The patient 's sphenoid ostium was identified. The guidewire was carefully introduced into the sphenoid sinus under direct visualization. The balloon was advanced and dilated. This was withdrawn, and the sinuses were irrigated with the irrigation catheter. The patient was then transported to recovery in stable condition. ESTIMATED BLOOD LOSS Negligible. COMPLICATIONS No complications. CONCHITA
== END 2018-01-12 10:10 | disposition home or self-care (01) ==
LOC: OR 00:42
PROVIDERS: ATTEND Otolaryngology
DX: J32.3 Chronic sphenoidal sinusitis (principal)
CPT/HCPCS: 31297; A9270; J3490; C1726; C1769; C1887

== ENCOUNTER → 2018-01-13 | Outpatient (CLI) | payer MEDICARE, OTHER ==
[2017-09-26 08:24] VITALS: BMI 23.8
--- NOTE | 2018-01-14 11:09 | RADIOLOGY IMAGING REPORT ---
FACILITY: [facility] - [place] PATIENT NAME: THEODORE GARIBAY : [id number] MR: [id number] V: [id number] EXAM DATE: [id number] ORDERING PHYSICIAN: GERSON KEN TECHNOLOGIST: Tegan Carbajal PROCEDURE:BILATERAL DIAGNOSTIC DIGITAL MAMMOGRAM WITH CAD ASSISTED INTERPRETATION & 3D TOMOSYNTHESIS COMPARISON:Prior mammograms 07/08/17, 12/25/16, 12/12/16, 11/28/15, 10/21/14, 10/19/13 INDICATIONS:ABNORMAL MAMMO-6 MONTH FOLLOW UP FINDINGS: Small amount of fibroglandular tissue is seen throughout the breasts. The parenchymal pattern has remained stable allowing for difference in mammographic technique & patient positioning. There is a cluster of round calcifications in the medial inferior Left breast. They are faintly seen on mammograms dating back to 2011. There is no evidence of malignant appearing mass, malignant appearing calcifications or other secondary sign of malignancy in either breast. DIAGNOSTIC CATEGORY 2--BENIGN FINDING. RECOMMENDATIONS: ROUTINE MAMMOGRAM AND CLINICAL EVALUATION. IMPRESSION: BIRADS 2: Benign finding No significant abnormality is seen Dictated by: Tala Sommer M.D. on 01/13/2018 at 17:22 Transcribed by: CAROLINE on 01/14/2018 at 10:10 Approved by: Tala Sommer M.D. on 01/14/2018 at 11:08 [facility]
== END ==
LOC: MAMO 01:24
PROVIDERS: ATTEND Internal Medicine
DX: R92.1 Mammographic calcification found on diagnostic imaging of breast (principal)
CPT/HCPCS: 77062; 77066

== ENCOUNTER → 2018-06-02 | Outpatient (REF) | payer MEDICARE, OTHER ==
[2017-09-26 08:24] VITALS: BMI 23.8
[~2018-06-02] MED LIST changes: -CITA-139 PO; +CITA-145 PO; +DULO60CA7 PO; +FLUT9.9S
== END ==
LOC: ZZSENDIN 09:27
PROVIDERS: ATTEND Internal Medicine Nephrology
DX: I12.9 Hypertensive chronic kidney disease with stage 1 through stage 4 chronic kidney disease, or unspecified chronic kidney disease (principal); N18.3 Chronic kidney disease, stage 3 (moderate)
CPT/HCPCS: 82043

== ENCOUNTER → 2018-06-03 | Outpatient (CLI) | payer MEDICARE, OTHER ==
[2017-09-26 08:24] VITALS: BMI 23.8
== END ==
LOC: LAB 16:04
PROVIDERS: ATTEND Internal Medicine Nephrology
DX: N18.3 Chronic kidney disease, stage 3 (moderate) (principal); D63.1 Anemia in chronic kidney disease
CPT/HCPCS: 36415; 82040; 82310; 82374; 82435; 82565; 82728; 82947; 83540; 83550; 84100; 84132; 84295; 84520; 85027

== ENCOUNTER 2018-10-09 19:59 | Emergency (ER) | payer MEDICARE, OTHER ==
[2017-09-26 08:24] VITALS: Wt 72.9 kg
[~2018-10-09 19:59] MED LIST changes: +DOXY-229 PO; +FLU180SY11 IM; -HYDR-4305 PO; +HYDR-627 PO; +IBUP-56 PO; -LOSA50TA72 PO; +LOSA50TA74 PO
[2018-10-09 20:08] VITALS: BP 142/72
--- NOTE | 2018-10-09 20:26 | ER Report ---
History and Physical Time Seen By : 20:26 Hx. of Stated Complaint: PAIN IN RT HEAL FOR A COUPLE DAYS. NO KNOWN INJURY. BEEN SOAKING IN A SALT BATH WITHOUT RELIEF. TAKING ADVIL TWICE A DAY HPI/ROS CHIEF COMPLAINT: right heel pain HISTORY OF PRESENT ILLNESS: This is a 78 year old female. She has pain in the right heel that started last night. She denies any injury. She did do a lot of shopping in [place] yesterday and this started upon return home. She feels the pain in the back of the heel. Worsens with movement. Has tried epsom soaks without relief. Also taking Advil twice a day today without relief. No history of ankle or foot injuries in the past. Allergies: Coded Allergies: Benzodiazepines (Verified Allergy, Severe, delirium, 10/09/18) Cephalosporins (Unverified Allergy, Mild, HIVES, 10/09/18) sulfamethoxazole (Verified Allergy, Mild, RASH, 10/09/18) trimethoprim (Verified Allergy, Mild, RASH, 10/09/18) amoxicillin (Verified Allergy, Unknown, GI DISTRESS, 10/09/18) bacitracin (Verified Allergy, Unknown, RASH, 10/09/18) clarithromycin (Verified Allergy, Unknown, GI DISTRESS, 10/09/18) levofloxacin (Unverified Allergy, Unknown, HIVES, 10/09/18) hydrocodone (Verified Adverse Reaction, Severe, delirium, 10/09/18) quetiapine (Verified Adverse Reaction, Severe, out of body experience, 10/09/18) Home Meds Active Scripts Prednisone (PREDNISONE) 20 Mg Tablet, 40 MG PO QDAY, #8 TAB 0 Refills Prov:VASU ZELAYA MD 10/09/18 Duloxetine HCl (Duloxetine HCl) 60 Mg Capsule.dr, 1 CAP PO QDAY, #90 CAP 3 Refills Prov:GERSON KEN MD 07/29/18 Fluticasone Propionate (Flonase Allergy Relief) 9.9 Ml [place].susp, 1-2 SPRAY NA QDAY, #3 BOTTLE 3 Refills 2 sprays each nostril daily for the first week, then 1 spray each nostril daily Prov:GERSON KEN MD 02/10/18 Lidocaine (Lidocaine) 5 % Adh..patch, 1 ADH.PATCH TOP QDAY, #90 PATCH 4 Refills apply to right hip every night. Remove in am Prov:GERSON KEN MD 01/07/18 Levothyroxine Sodium (LEVOTHYROXINE SODIUM) 75 Mcg Tablet, 1 TAB PO QDAY for 90 Days, #90 TAB 4 Refills Prov:ASHLEY DOSS MD 12/04/17 Reported Medications Ibuprofen (IBUPROFEN) 200 Mg Tablet, 3 TAB PO TID, TAB with food 07/29/18 Cyanocobalamin (Vitamin B-12) (VITAMIN B-12) 50 Mcg Tablet, 1 TAB PO QDAY purchase over the counter 11/24/17 Salmeterol Xinafoate (SEREVENT DISKUS) 50 Mcg Inh, 1 PUFF INH BID, INH 10/30/17 Albuterol Sulfate 90 Mcg/Act (PROAIR HFA 90 MCG/ACT) 8.5 Gm Hfa.aer.ad, 2 PUFF IH Q4-6H PRN for WHEEZING, INHALER 09/24/17 Oxygen (OXYGEN) Inha, 2 L INH cont 2 liters 09/08/17 Multivitamin (MULTI VITAMIN DAILY) 1 Each Tablet, 1 TAB PO QDAY 06/22/14 Discontinued Scripts Prednisone (PREDNISONE) 20 Mg Tablet, 40 MG PO QDAY for 4 Days, #8 TAB 0 Refills Prov:VASU ZELAYA MD 10/09/18 Doxycycline Monohydrate (DOXYCYCLINE MONOHYDRATE) 100 Mg Tablet, 1 TAB PO BID, #14 TAB 0 Refills Prov:GERSON KEN MD 07/29/18 Reviewed Nurses Notes: Yes Hx Smoking: Yes (<1 PPD X 20 YRS. QUIT 2009.) Smoking Status: Former Smoker Exposure to Second Hand Smoke?: No Hx Substance Use Disorder: No Hx Alcohol Use: Yes Constitutional Vital Sign - Last 24 Hours 10/09/18 20:08 Temp 97.9 Pulse 86 Resp 14 B/P (MAP) 142/72 Pulse Ox 91 O2 Delivery Room Air Physical Exam General: Alert, no acute distress. Musculoskeletal: Pain with palpation of the back and sides of the calcaneum and pain into the Achilles tendon. No sign of rupture, intact with testing of strength and squeeze of calf. Has normal active and passive range of motion and strength. Skin: No breakdown or inflammation. No redness or warmth. Cardiovascular: Normal capillary refill and pulses. Neuro: Normal sensation. Medical Decision Making EKG/Imaging Imaging CALCANEUS (HEEL) RIGHT INDICATION: Heel pain since Friday after a lot of walking. COMPARISON: None Available FINDINGS: 2 views of the right calcaneus. No fracture or dislocation. No bony lesions. No appreciable degenerative changes. Tiny calcaneal spur. Soft tissues show mild edema. No radiopaque foreign body. IMPRESSION: 1. No acute osseous abnormality of the right calcaneus. Report Dictated By: Zane Hudson at 10/09/2018 9:10 PM ED Course/Re-evaluation ED Course He'll x-ray negative. Appears to be Achilles tendinitis resulting from some overuse yesterday. Based on her history of ulcer disease, I do not think it safe for her to take higher dose or long-term NSAIDs. Instead we will give her some prednisone and she will use Tylenol and ice for pain. Recommended that if this worsens or is not improving that she would need follow-up with orthopedic surgery. Gentle range of motion discussed. Decision to Disposition Date: Oct 09, 2018 Decision to Disposition Time: 21:26 Depart Departure Latest Vital Signs Vital Signs Date Time Temp Pulse Resp B/P (MAP) Pulse Ox O2 Delivery O2 Flow Rate FiO2 10/09/18 20:08 97.9 86 14 142/72 91 Room Air Impression: Primary Impression: Achilles rupture, right Condition: Improved Disposition: HOME OR SELF-CARE Referrals: GERSON KEN MD (PCP) New Scripts Prednisone (PREDNISONE) 20 Mg Tablet 40 MG PO QDAY, #8 TAB 0 Refills Prov: VASU ZELAYA MD 10/09/18 Patient Instructions: Achilles Tendinitis (ED) Additional Instructions: We feel you have inflammation in the achilles tendon, possibly caused by ov erusing the other night. We recommend against using more of the naproxen given you history of gastric ulcers in the past. Use Tylenol as needed for pain. Apply ice every 1-2 hours while awake for about 15-20 minutes. Take the steroid Prednisone 20mg tablets, 2 tablets once a day for 4 days. If not improving over the weekend, please see [facility] (orthopedic surgery) for re-evaluation. Problem Qualifiers Primary Impression: Achilles rupture, right Encounter type: initial encounter Qualified Codes: S86.011A - Strain of right Achilles tendon, initial encounter VASU ZELAYA MD Oct 09, 2018 20:26
--- NOTE | 2018-10-09 21:15 | RADIOLOGY IMAGING REPORT ---
FACILITY: [facility] [place] PATIENT NAME: Brenton Gonzalez : 1940 MR: [id number] V: [id number] EXAM DATE: ORDERING PHYSICIAN: VASU ZELAYA TECHNOLOGIST: Location: [facility] Patient: Brenton Gonzalez : 1940 Visit/Account:[id number] Date of Sevice: 10/09/2018 CALCANEUS (HEEL) RIGHT INDICATION: Heel pain since Friday after a lot of walking. COMPARISON: None Available FINDINGS: 2 views of the right calcaneus. No fracture or dislocation. No bony lesions. No appreciable degenerat tonia changes. Tiny calcaneal spur. Soft tissues show mild edema. No radiopaque foreign body. IMPRESSION: 1. No acute osseous abnormality of the right calcaneus. Report Dictated By: Zane Hudson at 10/09/2018 9:10 PM Report E-Signed By: Zane Hudson at 10/09/2018 9:11 PM WSN:[id number]
[2018-10-09] MEDS ORDERED: predniSONE 20 MG TAB PO ONE (21:25)
[2018-10-09] MEDS ORDERED: PRED20TA6 PO ×2 (21:27→21:41)
== END 2018-10-09 21:30 | disposition home or self-care (01) ==
LOC: ER 20:30
DX: S86.011A Strain of right Achilles tendon, initial encounter (principal)
CPT/HCPCS: 73650; 99283; J7512

== ENCOUNTER → 2019-01-22 | Outpatient (CLI) | payer MEDICARE, OTHER ==
[2017-09-26 08:24] VITALS: BMI 23.8
[~2019-01-22] MED LIST changes: -LOSA50TA74 PO; +LOSA50TA80 PO; -ROSU20TA23 PO; +ROSU20TA24 PO
[2019-01-22 08:43] LABS: PLATELET COUNT, AUTOMATED 219 K/uL (150-450)
== END ==
LOC: LAB 08:22
PROVIDERS: ATTEND Internal Medicine
DX: E78.2 Mixed hyperlipidemia (principal); E03.9 Hypothyroidism, unspecified; D50.0 Iron deficiency anemia secondary to blood loss (chronic)
CPT/HCPCS: 36415; 82040; 82247; 82310; 82374; 82435; 82465; 82565; 82947; 83718; 84075; 84132; 84155; 84295; 84443; 84450; 84460; 84478; 84520; 85025

== ENCOUNTER → 2019-02-01 | Outpatient (CLI) | payer MEDICARE, OTHER ==
[2017-09-26 08:24] VITALS: BMI 23.8
--- NOTE | 2019-02-02 10:46 | RADIOLOGY IMAGING REPORT ---
FACILITY: [facility] - [place] PATIENT NAME: THEODORE GARIBAY : [id number] MR: [id number] V: [id number] EXAM DATE: ORDERING PHYSICIAN: GERSON KEN TECHNOLOGIST: Tegan Carbajal PROCEDURE:BILATERAL DIGITAL SCREENING MAMMOGRAM WITH CAD ASSISTED INTERPRETATION & 3D TOMOSYNTHESIS COMPARISON:Prior mammograms 01/13/18, 07/08/17, 12/25/16, 12/12/16, 11/28/15, 10/21/14. INDICATIONS:screening FINDINGS: The breasts are almost entirely fatty. The parenchymal pattern has remained stable allowing for difference in mammographic technique & patient positioning. DIAGNOSTIC CATEGORY 1--NEGATIVE. RECOMMENDATIONS: ROUTINE MAMMOGRAM AND CLINICAL EVALUATION. IMPRESSION: BIRADS 1: Negative. No significant abnormality is seen. Dictated by: Tala Sommer M.D. on 02/01/2019 at 18:14 Transcribed by: CAROLINE on 02/02/2019 at 8:09 Approved by: Tala Sommer M.D. on 02/02/2019 at 10:46 [facility]
== END ==
LOC: MAMO 02:05
PROVIDERS: ATTEND Internal Medicine
DX: Z12.31 Encounter for screening mammogram for malignant neoplasm of breast (principal)
CPT/HCPCS: 77063; 77067

== ENCOUNTER 2019-04-09 13:20 | Emergency (ER) | payer MEDICARE, OTHER ==
[2017-09-26 08:24] VITALS: Wt 93.4 kg
[~2019-04-09 13:20] MED LIST changes: +ACET-2146 PO; +BENZ100C4 PO; +BUS5 PO; +CHOL500016 PO; +DICL100G39 TOP; +IPRA3AMP10 IH
[2019-04-09] MEDS ORDERED: hydrOXYzine 25 MG TAB PO ONE (14:05)
[2019-04-09 14:30] VITALS: BP 140/90
--- NOTE | 2019-04-09 14:51 | ER Report ---
History and Physical Time Seen By MD: 13:40 Hx. of Stated Complaint: PATIENT STATES THAT SHE STARTED A NEW MEDICATION AT NIGHT FOR ANXIETY AND SLEEP AND SHE IS STILL ICHING "ALL OVER"; PATIENT ALSO STATES THAT SHE IS "VERY HOT" HPI/ROS CHIEF COMPLAINT: Allergic reaction HISTORY OF PRESENT ILLNESS: 78-year-old female was started on Seroquel for anxiety 2 days ago. She took her second dose last evening. She developed a rash shortly after. She has rash and itching throughout the arms and trunk as well as ongoing and slightly increased anxiety. She denies difficulty swallowing, swelling, difficulty breathing, chest pain, blurred vision. REVIEW OF SYSTEMS: Constitutional: No fever, no chills. Eyes: no blurred vision ENT: No sore throat. Cardiovascular: No chest pain, no palpitations. Respiratory: No cough, no shortness of breath. Gastrointestinal: No abdominal pain, no vomiting. Genitourinary: no dysuria Musculoskeletal: No back pain. Skin: rash/redness primarily on upper arms bilaterally Neurological: No headache. Remainder of the 14 system rev: Yes Allergies: Coded Allergies: Benzodiazepines (Verified Allergy, Severe, delirium, 10/09/18) quetiapine (Verified Allergy, Severe, out of body experience, 04/09/19) and rash Cephalosporins (Unverified Allergy, Mild, HIVES, 10/09/18) sulfamethoxazole (Verified Allergy, Mild, RASH, 10/09/18) trimethoprim (Verified Allergy, Mild, RASH, 10/09/18) amoxicillin (Verified Allergy, Unknown, GI DISTRESS, 10/09/18) bacitracin (Verified Allergy, Unknown, RASH, 10/09/18) clarithromycin (Verified Allergy, Unknown, GI DISTRESS, 10/09/18) levofloxacin (Unverified Allergy, Unknown, HIVES, 10/09/18) hydrocodone (Verified Adverse Reaction, Severe, delirium, 10/09/18) Home Meds Active Scripts Trazodone Hcl (TRAZODONE HCL) 50 Mg Tablet, 0.5-1 TAB PO QHS for 30 Days, #30 TAB Prov:ASHLEY DOSS MD 04/09/19 Hydroxyzine Hcl (HYDROXYZINE HCL) 25 Mg Tablet, 25 MG PO Q6-8H for itching, #10 TAB Prov:ALEX LORA MD 04/09/19 Ipratropium/Albuterol Sulfate (IPRAT-ALBUT 0.5-3(2.5) MG/3 ML) 3 Ml Ampul.neb, 1 VIAL IH TID PRN for COUGH for 30 Days, #90 VIAL Prov:ASHLEY DOSS MD 03/30/19 Benzonatate 100 Mg Cap (TESSALON PERLE 100 MG CAP) 100 Mg Capsule, 1 CAP PO TID PRN for COUGH for 7 Days, #21 CAP Prov:ASHLEY DOSS MD 03/30/19 Duloxetine HCl (Duloxetine HCl) 60 Mg Capsule.dr, 1 CAP PO HS, #90 CAP 3 Refills Prov:ASHLEY DOSS MD 03/01/19 Levothyroxine Sodium (LEVOTHYROXINE SODIUM) 75 Mcg Tablet, 1 TAB PO HS for 90 Days, #90 TAB 4 Refills Prov:ASHLEY DOSS MD 03/01/19 Lidocaine (Lidocaine) 5 % Adh..patch, 1 ADH.PATCH TOP QDAY, #90 PATCH 0 Refills apply to right hip every night. Remove in am Prov:CHRISTO FOREMAN DNP, CHUMMER-BC 01/15/19 Reported Medications Cholecalciferol (Vitamin D3) (VITAMIN D3) 5,000 Unit Capsule, 1 CAP PO DAILY, CAPSULE 03/01/19 Acetaminophen 500 Mg Tab (ACETAMINOPHEN EXTRA STRENGTH) 500 Mg Tablet, 2 TAB PO TID, TAB 03/01/19 Cyanocobalamin (Vitamin B-12) (VITAMIN B-12) 50 Mcg Tablet, 1 TAB PO QDAY purchase over the counter 11/24/17 Oxygen (OXYGEN) Inha, 2 L INH cont 2 liters 09/08/17 Multivitamin (MULTI VITAMIN DAILY) 1 Each Tablet, 1 TAB PO QDAY 06/22/14 Discontinued Reported Medications Quetiapine Fumarate (SEROQUEL) 25 Mg Tablet, 25 MG PO 04/08/19 Discontinued Scripts Buspirone Hcl (BUSPIRONE HCL) 5 Mg Tab, 5-10 MG PO BID for 90 Days, #180 TAB Prov:ASHLEY DOSS MD 03/22/19 Reviewed Nurses Notes: Yes Old Medical Records Reviewed: Yes Hx Smoking: Yes (<1 PPD X 20 YRS. QUIT 2009.) Smoking Status: Former Smoker Exposure to Second Hand Smoke?: No Hx Substance Use Disorder: No Hx Alcohol Use: Yes Constitutional Vital Sign - Last 24 Hours 04/09/19 04/09/19 04/09/19 04/09/19 13:29 13:30 13:31 13:32 Temp 97.8 Pulse 95 ??? Resp 18 B/P (MAP) 170/95 170/95 (120) 165/96 (119) Pulse Ox 89 88 O2 Delivery Nasal Cannula 04/09/19 04/09/19 14:00 14:30 Pulse 83 78 B/P (MAP) 122/86 (98) 140/90 (107) Pulse Ox 91 94 Physical Exam General Appearance: The patient is alert, has no immediate need for airway protection and no signs of toxicity. Eyes: Pupils equal and round no pallor or injection. ENT, Mouth: Mucous membranes are moist. Respiratory: There are no retractions, lungs are clear to auscultation. Cardiovascular: Regular rate and rhythm. Gastrointestinal: Abdomen is soft and non tender, no masses, bowel sounds normal. Neurological: alert, oriented, mild resting tremors, mild agitation Skin: warm and dry, bilateral Musculoskeletal: Neck is supple non tender. mild bilateral ankle edema. No other significant findings DIFFERENTIAL DIAGNOSIS: After history and physical exam differential diagnosis was considered for anaphylaxis, sepsis, environmental, food, drug exposure, or other cause or complication of symptoms. Medical Decision Making EKG/Imaging EKG Interpretation 12 lead EKG: Rhythm: Normal sinus rhythm [place]: Normal QRS: Normal ST segments: Normal Monitor Interpretation: Normal Sinus Rhythm ED Course/Re-evaluation ED Course 78 female with itching without sgs anaphylaxis or other systemic symptoms. Improves in ED, will stop seroquel, iniate atarax prn; appreciate beside evaluation by Dr. Doss who will change medication for anxiety/sleep. Decision to Disposition Date: April 09, 2019 Decision to Disposition Time: 14:52 Depart Departure Latest Vital Signs Vital Signs Date Time Temp Pulse Resp B/P (MAP) Pulse Ox O2 Delivery O2 Flow Rate FiO2 04/09/19 14:30 78 140/90 (107) 94 04/09/19 13:29 97.8 18 Nasal Cannula Impression: Primary Impression: Allergic reaction Condition: Improved Disposition: HOME OR SELF-CARE Referrals: ASHLEY DOSS MD (PCP) 5 Days New Scripts Hydroxyzine Hcl (HYDROXYZINE HCL) 25 Mg Tablet 25 MG PO Q6-8H for itching, #10 TAB Prov: ALEX LORA MD 04/09/19 Patient Instructions: General Allergic Reaction (ED) Additional Instructions: Please return immediately for worsening symptoms, difficulty breathing, swelling of mouth, throat, or any concerns. Problem Qualifiers Primary Impression: Allergic reaction Encounter type: sequela Qualified Codes: T78.40XS - Allergy, unspecified, sequela ALEX LORA MD April 09, 2019 14:51
[2019-04-09] MEDS ORDERED: HYDR-4225 PO (14:55)
[2019-04-09] MEDS ORDERED: TRAZ50TA34 PO (15:10)
--- NOTE | 2019-04-09 15:27 | EKG ---
[place] [facility] [place] THEODORE GARIBAY : [id number] MR: [id number] V: [id number] EXAM DATE: ORDERING PHYSICIAN: ALEX LORA TECHNOLOGIST: SAYRA Test Reason : ITCHY Blood Pressure : / mmHG Vent. Rate : 081 BPM Atrial Rate : 081 BPM P-R Int : 136 ms QRS Dur : 090 ms QT Int : 408 ms P-R-T Axes : 067 027 051 degrees QTc Int : 473 ms Sinus rhythm Probable left atrial enlargement No acute appearing findings Fairly similar to previous EKGs Confirmed by YULISA CANCHOLA ([id number] on 04/09/2019 8:11:53 PM Referred By: GUIDO Confirmed By:YULISA CANCHOLA
== END 2019-04-09 15:21 | disposition home or self-care (01) ==
LOC: ER 13:24
DX: T78.40XA Allergy, unspecified, initial encounter (principal)
CPT/HCPCS: 93005; 99283; A9270

== ENCOUNTER → 2019-04-21 | Outpatient (CLI) | payer MEDICARE, OTHER ==
[2017-09-26 08:24] VITALS: BMI 23.8
[~2019-04-21] MED LIST changes: +CYA1000 PO; +HYDR-4225 PO; +LEVO88TA45 PO; +OMEP-137 PO; +TRAZ50TA52 PO
[2019-04-21 08:51] LABS: PLATELET COUNT, AUTOMATED 253 K/uL (150-450)
--- NOTE | 2019-04-21 09:23 | RADIOLOGY IMAGING REPORT ---
FACILITY: [facility] [place] PATIENT NAME: Brenton Gonzalez : 1940 MR: [id number] V: [id number] EXAM DATE: ORDERING PHYSICIAN: ASHLEY DOSS TECHNOLOGIST: Location: [facility] Patient: Brenton Gonzalez : 1940 Visit/Account:[id number] Date of Sevice: 04/21/2019 CHEST PA LAT HISTORY: Cough. History of smoking 15 years ago. COMPARISON: Chest x-ray October 28, 2017. FINDINGS: Cardiomediastinal contours: The heart size is normal. Lungs and pleura: There is no discrete infiltrate. There is subtle blunting of the lateral left cost ophrenic sulcus seen on only the AP projection. The significance of this finding is uncertain. Bones/soft tissues: There are no findings of a fracture. IMPRESSION: 1. No active disease in the chest. No findings of a discrete infiltrate. Report Dictated By: Baudilio Curtis MD at 04/21/2019 9:15 AM Report E-Signed By: Baudilio Curtis MD at 04/21/2019 9:16 AM WSN:[id number]
== END ==
LOC: LAB 08:24
PROVIDERS: ATTEND Family Medicine
DX: E03.9 Hypothyroidism, unspecified (principal); R05 Cough
CPT/HCPCS: 36415; 71046; 82040; 82247; 82310; 82374; 82435; 82565; 82947; 84075; 84132; 84155; 84295; 84443; 84450; 84460; 84520; 85025

== ENCOUNTER 2019-05-09 17:02 | Emergency (ER) | payer MEDICARE, OTHER ==
[2017-09-26 08:24] VITALS: Wt 93.0 kg
--- NOTE | 2019-05-09 17:09 | ER Report ---
History and Physical Time Seen By MD: 17:07 HPI/ROS CHIEF COMPLAINT: Anxious HISTORY OF PRESENT ILLNESS: This is a 79-year-old female who presents the emergency department for anxiety. Patient has a history of anxiety, has been progressively getting worse over the last several days. She has also been having extreme hot flashes. Currently under treatment for hypothyroidism, currently adjusting her medications. She is being followed by Dr. Doss. Patient is no longer on pain medications nor she on benzodiazepines secondary to postanesthesia delirium. She denies chest pain and shortness of breath. No nausea or vomiting. No hematuria or dysuria. No rashes. No headaches. REVIEW OF SYSTEMS: Constitutional: As above. Eyes: No discharge. ENT: No sore throat. Cardiovascular: No chest pain, no palpitations. Respiratory: No cough, no shortness of breath. Gastrointestinal: No abdominal pain, no vomiting. Genitourinary: No hematuria. Musculoskeletal: No back pain. Skin: No rashes. Neurological: No headache. Psychological: As above. Allergies: Coded Allergies: Benzodiazepines (Verified Allergy, Severe, delirium, 10/09/18) Cephalosporins (Unverified Allergy, Mild, HIVES, 10/09/18) sulfamethoxazole (Verified Allergy, Mild, RASH, 10/09/18) trimethoprim (Verified Allergy, Mild, RASH, 10/09/18) amoxicillin (Verified Allergy, Unknown, GI DISTRESS, 10/09/18) bacitracin (Verified Allergy, Unknown, RASH, 10/09/18) clarithromycin (Verified Allergy, Unknown, GI DISTRESS, 10/09/18) levofloxacin (Unverified Allergy, Unknown, HIVES, 10/09/18) hydrocodone (Verified Adverse Reaction, Severe, delirium, 10/09/18) Home Meds Active Scripts Clonidine Hcl (CLONIDINE HCL) 0.1 Mg Tablet, 0.1 MG PO BID PRN for prn, #12 TAB 0 Refills Prov:KINZA SMITH INSTALLATION AND REPAIR TECHNICIAN- 05/09/19 Quetiapine Fumarate (SEROQUEL) 25 Mg Tablet, 1 TAB PO HS for 90 Days, #90 TAB Prov:ASHLEY DOSS MD 05/06/19 Buspirone Hcl (BUSPIRONE HCL) 5 Mg Tab, 5 MG PO BID for 90 Days, #180 TAB 1 Refill Prov:ASHLEY DOSS MD 05/05/19 Trazodone Hcl (TRAZODONE HCL) 50 Mg Tablet, 1 TAB PO QHS for 90 Days, #90 TAB 4 Refills Prov:ASHLEY DOSS MD 05/05/19 Omeprazole (OMEPRAZOLE) 20 Mg Tablet.dr, 1 TAB PO QDAY for 90 Days, #90 TAB Prov:ASHLEY DOSS MD 05/05/19 Levothyroxine Sodium (LEVOTHYROXINE SODIUM) 88 Mcg Tablet, 1 TAB PO QDAY for 90 Days, #90 TAB Prov:ASHLEY DOSS MD 05/05/19 Duloxetine HCl (Duloxetine HCl) 60 Mg Capsule.dr, 1 CAP PO HS, #90 CAP 3 Refills Prov:ASHLEY DOSS MD 03/01/19 Lidocaine (Lidocaine) 5 % Adh..patch, 1 ADH.PATCH TOP QDAY, #90 PATCH 0 Refills apply to right hip every night. Remove in am Prov:CHRITSO FOREMAN DNP, INSTALLATION AND REPAIR TECHNICIAN-BC 01/15/19 Reported Medications Cyanocobalamin (Vitamin B-12) (VITAMIN B-12) 1,000 Mcg Tablet, 1 TAB PO DAILY 04/21/19 Cholecalciferol (Vitamin D3) (VITAMIN D3) 5,000 Unit Capsule, 1 CAP PO DAILY, CAPSULE 03/01/19 Acetaminophen 500 Mg Tab (ACETAMINOPHEN EXTRA STRENGTH) 500 Mg Tablet, 2 TAB PO TID, TAB 03/01/19 Oxygen (OXYGEN) Inha, 2 L INH cont 2 liters 09/08/17 Multivitamin (MULTI VITAMIN DAILY) 1 Each Tablet, 1 TAB PO QDAY 06/22/14 Discontinued Scripts Hydroxyzine Hcl (HYDROXYZINE HCL) 25 Mg Tablet, 25 MG PO Q6-8H for itching, #10 TAB Prov:ASHLEY DOSS MD 04/14/19 Past Medical/Surgical History The patient has a past medical and surgical history of dizziness, vertigo, multiple syncopal episodes, sinus headaches, myocardial infarction, uses oxygen at night, pulmonary embolus, COPD, GERD, urinary tract infections, menopause, back pain, back surgeries, arthritis, chronic back pain, wears dentures, reading glasses, thyroid surgery, hypothyroidism, prediabetic, pulmonary embolus, depression, anxiety, angiogram, bilateral salpingo-oophorectomy, sinus surgery, cataract surgery. Reviewed Nurses Notes: Yes Hx Smoking: Yes (<1 PPD X 20 YRS. QUIT 2009.) Smoking Status: Former Smoker Exposure to Second Hand Smoke?: No Hx Substance Use Disorder: No Hx Alcohol Use: Yes Constitutional Vital Sign - Last 24 Hours 05/09/19 05/09/19 17:08 19:00 Temp 98.0 Pulse 103 85 Resp 18 16 B/P (MAP) 152/88 142/84 (103) Pulse Ox 90 92 O2 Delivery Nasal Cannula Nasal Cannula O2 Flow Rate 3 Physical Exam General Appearance: The patient is alert, has no immediate need for airway protection and no signs of toxicity. Eyes: Pupils equal and round no pallor or injection. ENT, Mouth: Mucous membranes are moist. Respiratory: There are no retractions, lungs are clear to auscultation. Cardiovascular: Regular rate and rhythm. No murmurs, clicks or rubs. Gastrointestinal: Abdomen is soft and non tender, no masses, bowel sounds normal. Neurological: Alert and oriented 4. Moving all extremities. Following all commands. No focal neuro deficits. Skin: Warm and dry, cheeks are flushed. Musculoskeletal: Neck is supple non tender. Extremities are nontender, nonswollen and have full range of motion. Psychological: Patient appears anxious, however she does have clear speech. She appears uncomfortable and continuously adjusting her position during my exam however this could be secondary to her back pain. DIFFERENTIAL DIAGNOSIS: After history and physical exam differential diagnosis was considered for hypothyroidism, psychosis, anxiety, depression, chronic pain syndrome. Medical Decision Making ED Course/Re-evaluation ED Course The patient was admitted to room. A history and physical obtained. Differential diagnoses were considered. After a lengthy discussion and exam, patient states she is willing to try the clonidine for her anxiety, I also had one of the behavioral health techs come down and speak with the patient regarding a possible admission to behavioral health unit however she does not want to go to the behavioral health unit at this time, she states that she has an appointment for her back in [place] tomorrow morning, she does not want to miss the appointment. We discussed her thyroid, she states that her new medications will be here Friday, she is currently taking 50 g levothyroxine, her new levothyroxine dose is 88 g, she is also currently taking trazodone, buspirone and duloxetine. Patient states she is feeling better after receiving the 0.1 mg clonidine, she that she is ready to go home, I did speak with her primary care provider regarding the clonidine, she'll I both feel that the patient would benefit from a short period course of the clonidine, patient is agreeable with this as well as her . They will follow up with her primary care provider for reevaluation, they do have a follow-up appointment scheduled tomorrow in [place] for her back, she may require additional back surgeries, patient and both state that this may help with her anxiety. Decision to Disposition Date: May 09, 2019 Decision to Disposition Time: 18:53 Depart Departure Latest Vital Signs Vital Signs Date Time Temp Pulse Resp B/P (MAP) Pulse Ox O2 Delivery O2 Flow Rate FiO2 05/09/19 19:00 85 16 142/84 (103) 92 Nasal Cannula 3 05/09/19 17:08 98.0 Impression: Primary Impression: Generalized anxiety disorder with panic attacks Condition: Improved Disposition: HOME OR SELF-CARE Referrals: ASHLEY DOSS MD (PCP) New Scripts Clonidine Hcl (CLONIDINE HCL) 0.1 Mg Tablet 0.1 MG PO BID PRN for prn, #12 TAB 0 Refills Prov: KINZA SMITH 05/09/19 Patient Instructions: Anxiety (ED) Additional Instructions: You can use the Clonidine 0.1mg tablet every 12 hours as needed for anxiety, be very careful as this can cause a drop in your blood pressure too. Please follow up with Dr. Doss as soon as possible. Please keep your appointment with your back specialist as scheduled tomorrow. Continue taking your regular medications as scheduled. Return to the ED for any other concerns or worsening symptoms. KINZA SMITH-BC May 09, 2019 17:09
[2019-05-09] MEDS ORDERED: cloNIDine HCL 0.1 MG TAB PO ONE (17:50)
[2019-05-09] MEDS ORDERED: CLON-327 PO (18:52)
[2019-05-09 19:00] VITALS: BP 142/84
== END 2019-05-09 19:05 | disposition home or self-care (01) ==
LOC: ER 17:24
DX: F41.0 Panic disorder [episodic paroxysmal anxiety] (principal)
CPT/HCPCS: 99283; A9270

== ENCOUNTER → 2019-05-31 | Outpatient (CLI) | payer MEDICARE, OTHER ==
[2017-09-26 08:24] VITALS: BMI 23.8
[~2019-05-31] MED LIST changes: +CLON-327 PO; +DULO30CA6 PO
[2019-05-31 12:50] LABS: PLATELET COUNT, AUTOMATED 228 K/uL (150-450)
== END ==
LOC: LAB 12:39
PROVIDERS: ATTEND Family Medicine
DX: E03.9 Hypothyroidism, unspecified (principal)
CPT/HCPCS: 36415; 82040; 82247; 82310; 82374; 82435; 82565; 82947; 84075; 84132; 84155; 84295; 84443; 84450; 84460; 84520; 85025

== ENCOUNTER → 2019-06-08 | Outpatient (CLI) | payer MEDICARE, OTHER ==
[2017-09-26 08:24] VITALS: BMI 23.8
[~2019-06-08] MED LIST changes: +AZEL23SP NS
== END ==
LOC: RESP
PROVIDERS: ATTEND Family Medicine
DX: J98.4 Other disorders of lung (principal)
CPT/HCPCS: 94060; 94726; 94729